=== PATIENT | male | born 1975 | race Two or more races ===

== ENCOUNTER 2023-07-11 15:36 | Inpatient (IN) | payer OTHER ==
[~2023-07-11] VITALS: Ht 185.4 cm; Wt 50.3 kg
[2023-07-11] VITALS (8 sets, daily range): BP systolic 111–142; BP diastolic 68–93; PULSE 136–162; RESP 16–29; TEMP 98.4–98.8; O2SAT 91–94
[2023-07-11] MEDS ORDERED: METOPROLOL TARTRATE 50 MG TAB PO ONE (19:30)
[2023-07-11] MEDS: dilTIAZem 125mg/125ml BAG KIT 125 ML IV SCH (19:30)
[2023-07-11] MEDS ORDERED: MORPHINE SULFATE INJ 2 MG/ml SYRG IV PRN (20:15)
[2023-07-11] MEDS ORDERED: MAALOX PLUS or MAALOX 30 ML PO PRN (20:15)
[2023-07-11] MEDS ORDERED: ONDANSETRON HCL 4 MG/2 ML VIAL IV PRN (20:15)
[2023-07-11] MEDS ORDERED: NITROGLYCERIN 0.4 MG SL TAB SL PRN (20:15)
[2023-07-11] MEDS ORDERED: LORazepam 0.5 MG TAB PO PRN (20:15)
[2023-07-11] MEDS ORDERED: ACETAMINOPHEN 325 MG TAB PO PRN (20:15)
[2023-07-11] MEDS ORDERED: HYDROmorphone HCL 2 MG/ML VL/or syr IV PRN (20:15)
[2023-07-11] MEDS ORDERED: DOCUSATE SOD 100 MG CAP PO PRN (20:15)
[2023-07-11 20:27] LABS: Basophils # (auto) 0.1 10 ^3/uL (0-0.2); Basophils % (auto) 0.6 % (0.0-2.0); Eosinophils # (auto) 0.1 10 ^3/uL (0-0.8); Eosinophils % (auto) 1.3 % (0.0-7.0); Hematocrit 36.9 % (41.0-53.0); Hemoglobin 12.7 g/dL (13.5-17.5); Lymphocytes # (auto) 3.4 10 ^3/uL (0.4-5.4); Mean Corpuscular Hemoglobin 29.7 pg (28.0-32.0); Mean Corpuscular Hgb Conc. 34.4 g/dL (32.0-36.0); Mean Corpuscular Volume 86.3 fL (80.0-100.0); Monocytes # (auto) 0.8 10 ^3/uL (0-1.3); Monocytes % (auto) 7.3 % (0.0-12.0); Neutrophils # (auto) 6.2 10 ^3/uL (1.6-8.6); Neutrophils % (auto) 58.8 % (37.0-80.0); Nucleated Red Blood Cells % 0.1 %; Red Blood Cells 4.27 10^6/uL (4.5-5.90); Red Cell Distribution Width 13.4 % (11.8-14.3); White Blood Cell 10.5 10^3/uL (4.4-10.8)
[2023-07-11 20:50] LABS: Alanine Aminotransferase 47 U/L (7-40); Albumin 4.3 g/dL (3.2-4.8); Alkaline Phosphatase 51 U/L (46-116); Anion Gap 5 (5-15); Aspartate Aminotransferase 22 U/L (13-40); BUN/Creatinine Ratio 10.5 (10.0-20.0); Bilirubin, Total 1.9 mg/dL (0.2-1.0); Blood Urea Nitrogen 14 mg/dL (9-23); Calcium 8.6 mg/dL (8.7-10.4); Carbon Dioxide 28 mmol/L (20-30); Chloride 109 mmol/L (98-107); Glucose 92 mg/dL (74-106); Sodium 142 mmol/L (136-145); Total Protein 6.1 g/dL (5.7-8.2)
[2023-07-12] VITALS (59 sets, daily range): BP systolic 93–153; BP diastolic 53–97; PULSE 99–160; RESP 13–25; TEMP 98.6–99; O2SAT 86–97
[2023-07-12] MEDS ORDERED: dilTIAZem 25 MG/5 ML VIAL IV ONE (00:37)
[2023-07-12] MEDS: APIXABAN 5 MG TAB PO SCH ×2 (00:54→10:29)
[2023-07-12] MEDS: SODIUM CHLOR 0.9% PF (SALINE LOCK) 10ML VIAL/SYR IV SCH ×4 (00:54→21:39)
[2023-07-12] MEDS: dilTIAZem 125mg/125ml BAG KIT 125 ML IV SCH ×2 (01:40→10:31)
[2023-07-12 04:19] LABS: Basophils # (auto) 0 10 ^3/uL (0-0.2); Basophils % (auto) 0.3 % (0.0-2.0); Eosinophils # (auto) 0.2 10 ^3/uL (0-0.8); Eosinophils % (auto) 1.5 % (0.0-7.0); Hemoglobin 12.2 g/dL (13.5-17.5); Lymphocytes # (auto) 2.6 10 ^3/uL (0.4-5.4); Lymphocytes % (auto) 23.1 % (10.0-50.0); Mean Corpuscular Hemoglobin 30.1 pg (28.0-32.0); Mean Corpuscular Hgb Conc. 34.8 g/dL (32.0-36.0); Mean Corpuscular Volume 86.5 fL (80.0-100.0); Monocytes % (auto) 9.3 % (0.0-12.0); Neutrophils # (auto) 7.3 10 ^3/uL (1.6-8.6); Neutrophils % (auto) 65.8 % (37.0-80.0); Nucleated Red Blood Cells % 0.1 %; Red Blood Cells 4.05 10^6/uL (4.5-5.90); Red Cell Distribution Width 13.2 % (11.8-14.3); White Blood Cell 11.1 10^3/uL (4.4-10.8)
[2023-07-12 04:26] LABS: Alanine Aminotransferase 38 U/L (7-40); Albumin 4.1 g/dL (3.2-4.8); Alkaline Phosphatase 46 U/L (46-116); Anion Gap 6 (5-15); Aspartate Aminotransferase 17 U/L (13-40); BUN/Creatinine Ratio 7.7 (10.0-20.0); Blood Urea Nitrogen 11 mg/dL (9-23); Calcium 8.7 mg/dL (8.7-10.4); Carbon Dioxide 27 mmol/L (20-30); Chloride 108 mmol/L (98-107); Glucose 104 mg/dL (74-106); Potassium 3.8 mmol/L (3.5-5.1); Sodium 141 mmol/L (136-145)
[2023-07-12 04:27] LABS: Bilirubin, Total 2.1 mg/dL (0.2-1.0); Total Protein 6.1 g/dL (5.7-8.2)
[2023-07-12] MEDS ORDERED: METOPROLOL TARTRATE 1MG/1ML-5ML VIAL IV ONE (12:30)
[2023-07-12] MEDS: CARVEDILOL 12.5 MG TAB PO SCH ×2 (13:05→21:39)
[2023-07-12] MEDS: HYDROcodone-ACET 5/325MG TAB PO PRN (14:26)
[2023-07-12] MEDS ORDERED: FUROSEMIDE 20 MG TAB PO ONE (14:30)
[2023-07-12] MEDS ORDERED: DIGOXIN (250MCG/ML) 2 ML AMPULE IV ONE ×3 (18:30→20:30)
[2023-07-12 18:57] LABS: Urine Bacteria NONE SEEN /hpf (None Seen); Urine Blood Negative /uL (Negative); Urine Clarity Clear (Clear); Urine Color Yellow (Yellow); Urine Mucus FEW (None Seen); Urine Protein, UAD Negative (Negative); Urine Specific Gravity 1.018 (1.001-1.035); Urine Urobilinogen Normal (Negative); Urine WBC <1 /hpf (0 - 3)
[2023-07-12 19:16] LABS: Amphetamine Screen, Urine Neg (NEGATIVE); Benzodiazephine Screen, Urine Neg (NEGATIVE)
[2023-07-12 19:17] LABS: Barbiturate Scree,Urine Neg (NEGATIVE); Cannabinoid Screen, Urine Neg (NEGATIVE); Cocaine Screen, Urine Neg (NEGATIVE); Opiate Scree,Urine Neg (NEGATIVE); Phencyclidine Screen, Urine Neg (NEGATIVE)
[2023-07-12] MEDS: ENOXAPARIN SOD 150 MG/1 ML SYRINGE SC SCH (21:38)
[2023-07-12] MEDS: SACUBITRIL-VALSARTAN 24mg/26mg TAB PO SCH (22:07)
[2023-07-13] VITALS (35 sets, daily range): BP systolic 93–120; BP diastolic 52–89; PULSE 131–180; RESP 11–28; TEMP 98.1–99.3; O2SAT 88–99
[2023-07-13 04:25] LABS: Basophils # (auto) 0 10 ^3/uL (0-0.2); Basophils % (auto) 0.3 % (0.0-2.0); Eosinophils # (auto) 0.2 10 ^3/uL (0-0.8); Eosinophils % (auto) 1.4 % (0.0-7.0); Hematocrit 38.2 % (41.0-53.0); Lymphocytes # (auto) 2.8 10 ^3/uL (0.4-5.4); Lymphocytes % (auto) 22.3 % (10.0-50.0); Mean Corpuscular Hemoglobin 29.4 pg (28.0-32.0); Mean Corpuscular Hgb Conc. 34.1 g/dL (32.0-36.0); Mean Corpuscular Volume 86.4 fL (80.0-100.0); Monocytes # (auto) 1.1 10 ^3/uL (0-1.3); Monocytes % (auto) 8.5 % (0.0-12.0); Neutrophils # (auto) 8.6 10 ^3/uL (1.6-8.6); Neutrophils % (auto) 67.5 % (37.0-80.0); Red Blood Cells 4.43 10^6/uL (4.5-5.90); White Blood Cell 12.7 10^3/uL (4.4-10.8)
[2023-07-13 04:38] LABS: Alanine Aminotransferase 34 U/L (7-40); Albumin 4.2 g/dL (3.2-4.8); Alkaline Phosphatase 47 U/L (46-116); Anion Gap 6 (5-15); Aspartate Aminotransferase 18 U/L (13-40); BUN/Creatinine Ratio 9.5 (10.0-20.0); Blood Urea Nitrogen 13 mg/dL (9-23); Carbon Dioxide 27 mmol/L (20-30); Chloride 106 mmol/L (98-107); Cholesterol 138 mg/dL (< 200); Glucose 115 mg/dL (74-106); HDL Cholesterol 31 mg/dL (40-59); LDL Cholesterol 93 mg/dL (< 100); Potassium 4.1 mmol/L (3.5-5.1); Sodium 139 mmol/L (136-145); Triglycerides 103 mg/dL (< 150)
[2023-07-13 04:39] LABS: Total Protein 6.2 g/dL (5.7-8.2)
[2023-07-13 04:40] LABS: INR 1.14 (0.9-1.15); Partial Thromboplastin Time 33.7 SEC (24.5-34.5); Prothrombin Time 11.9 sec (9.3-11.8)
[2023-07-13] MEDS: SODIUM CHLOR 0.9% PF (SALINE LOCK) 10ML VIAL/SYR IV SCH ×3 (06:51→22:56)
[2023-07-13] MEDS ORDERED: HEPARIN SODIUM (PORCINE) 5000 UNITS/ML 1ML VIAL ONE (07:34)
[2023-07-13] MEDS ORDERED: VERAPAMIL 2.5MG/ML INJ 2ML VIAL IV ONE (07:34)
[2023-07-13] MEDS ORDERED: SODIUM CHL 0.9% 0 ML ONE (07:34)
[2023-07-13] MEDS ORDERED: ANGIOMAX 250 MG VIAL IV ONE (07:34)
[2023-07-13] MEDS ORDERED: fentaNYL CITRATE 100 MCG/2 ML VL ONE (07:36)
[2023-07-13] MEDS ORDERED: MIDAZOLAM HCL 2MG/2ML 2ml VIAL (1mg/ml) ONE (07:36)
[2023-07-13] MEDS ORDERED: LIDOCAINE 2%HCL (LOCAL ANESTH.) INJ 20ML MDV ONE (07:37)
[2023-07-13] MEDS ORDERED: IODIXANOL 320MG/ML 100ML BTL IV ONE ×3 (07:37→07:44)
[2023-07-13] MEDS: ENOXAPARIN SOD 150 MG/1 ML SYRINGE SC SCH (10:00)
[2023-07-13] MEDS ORDERED: FUROSEMIDE 20 MG TAB PO SCH (10:00)
[2023-07-13] MEDS: SACUBITRIL-VALSARTAN 24mg/26mg TAB PO SCH ×2 (10:00→21:17)
[2023-07-13] MEDS ORDERED: SPIRONOLACTONE 25 MG TAB PO ONE (10:15)
[2023-07-13] MEDS ORDERED: APIXABAN 5 MG TAB PO ONE (10:15)
[2023-07-13] MEDS ORDERED: DIGOXIN 0.125 MG TAB PO ONE (10:15)
[2023-07-13] MEDS ORDERED: EMPAGLIFLOZIN 10 MG TAB PO ONE (10:15)
[2023-07-13] MEDS ORDERED: SODIUM CHLORIDE 0.9% 250 ML IV ONE (17:00)
[2023-07-13] MEDS: HYDROcodone-ACET 5/325MG TAB PO PRN (17:52)
[2023-07-13] MEDS ORDERED: MAGNESIUM SULFATE 1GM/100ML 100 ML IV ONE (18:15)
[2023-07-13] MEDS ORDERED: METOPROLOL TARTRATE 1MG/1ML-5ML VIAL IV PRN (18:15)
[2023-07-13] MEDS ORDERED: dilTIAZem 25 MG/5 ML VIAL IV ONE (21:00)
[2023-07-13] MEDS: APIXABAN 5 MG TAB PO SCH (21:17)
[2023-07-13] MEDS: CARVEDILOL 12.5 MG TAB PO SCH (21:18)
[2023-07-13] MEDS ORDERED: AMIODARONE 450mg/250ml AE 250 ML IV SCH (23:30)
[2023-07-14] VITALS (53 sets, daily range): BP systolic 98–143; BP diastolic 40–98; PULSE 97–173; RESP 13–36; TEMP 98.8–99.3; O2SAT 87–98
[2023-07-14] MEDS: HYDROcodone-ACET 5/325MG TAB PO PRN ×6 (02:00→22:19)
[2023-07-14] MEDS ORDERED: AMIODARONE 450mg/250ml AE 250 ML IV SCH (05:30)
[2023-07-14] MEDS: SODIUM CHLOR 0.9% PF (SALINE LOCK) 10ML VIAL/SYR IV SCH ×3 (06:23→22:19)
[2023-07-14] MEDS: EMPAGLIFLOZIN 10 MG TAB PO SCH (06:51)
[2023-07-14] MEDS: FUROSEMIDE 20 MG/2 ML VIAL IV SCH (10:00)
[2023-07-14] MEDS ORDERED: DIGOXIN 0.125 MG TAB PO SCH ×2 (10:00)
[2023-07-14] MEDS: SPIRONOLACTONE 25 MG TAB PO SCH (10:15)
[2023-07-14] MEDS: APIXABAN 5 MG TAB PO SCH ×2 (10:16→22:16)
[2023-07-14] MEDS: CARVEDILOL 12.5 MG TAB PO SCH ×2 (10:18→11:18)
[2023-07-14 11:26] LABS: Basophils # (auto) 0 10 ^3/uL (0-0.2); Basophils % (auto) 0.1 % (0.0-2.0); Eosinophils # (auto) 0 10 ^3/uL (0-0.8); Eosinophils % (auto) 0.3 % (0.0-7.0); Hematocrit 37.7 % (41.0-53.0); Hemoglobin 13.1 g/dL (13.5-17.5); Lymphocytes # (auto) 1.7 10 ^3/uL (0.4-5.4); Lymphocytes % (auto) 14.1 % (10.0-50.0); Mean Corpuscular Hgb Conc. 34.7 g/dL (32.0-36.0); Mean Corpuscular Volume 86.2 fL (80.0-100.0); Monocytes # (auto) 1.4 10 ^3/uL (0-1.3); Monocytes % (auto) 11.4 % (0.0-12.0); Neutrophils # (auto) 9.1 10 ^3/uL (1.6-8.6); Neutrophils % (auto) 74.1 % (37.0-80.0); Red Blood Cells 4.37 10^6/uL (4.5-5.90); Red Cell Distribution Width 12.8 % (11.8-14.3); White Blood Cell 12.3 10^3/uL (4.4-10.8)
[2023-07-14 11:37] LABS: Anion Gap 5 (5-15); Carbon Dioxide 30 mmol/L (20-30); Chloride 101 mmol/L (98-107); Potassium 4.1 mmol/L (3.5-5.1); Sodium 136 mmol/L (136-145)
[2023-07-14 11:38] LABS: Calcium 8.8 mg/dL (8.7-10.4)
[2023-07-14 11:43] LABS: BUN/Creatinine Ratio 10.4 (10.0-20.0); Blood Urea Nitrogen 16 mg/dL (9-23); Glucose 121 mg/dL (74-106)
[2023-07-14] MEDS ORDERED: dilTIAZem 25 MG/5 ML VIAL IV ONE ×2 (14:45→22:48)
[2023-07-14] MEDS: dilTIAZem 125mg/125ml BAG KIT 125 ML IV SCH (15:35)
[2023-07-14] MEDS ORDERED: DIGOXIN (250MCG/ML) 2 ML AMPULE IV ONE (16:30)
[2023-07-15] VITALS (92 sets, daily range): BP systolic 89–157; BP diastolic 37–103; PULSE 57–158; RESP 9–29; TEMP 98.4–99; O2SAT 85–99
[2023-07-15] MEDS: dilTIAZem 125mg/125ml BAG KIT 125 ML IV SCH ×3 (02:43→18:10)
[2023-07-15 04:27] LABS: Chloride 101 mmol/L (98-107); Potassium 4.2 mmol/L (3.5-5.1); Sodium 134 mmol/L (136-145)
[2023-07-15 04:28] LABS: Anion Gap 6 (5-15); Calcium 8.8 mg/dL (8.7-10.4); Carbon Dioxide 27 mmol/L (20-30)
[2023-07-15 04:33] LABS: BUN/Creatinine Ratio 11.3 (10.0-20.0); Blood Urea Nitrogen 17 mg/dL (9-23); Glucose 117 mg/dL (74-106)
[2023-07-15 04:36] LABS: Basophils # (auto) 0 10 ^3/uL (0-0.2); Basophils % (auto) 0.1 % (0.0-2.0); Eosinophils # (auto) 0 10 ^3/uL (0-0.8); Eosinophils % (auto) 0.4 % (0.0-7.0); Hematocrit 37.3 % (41.0-53.0); Lymphocytes # (auto) 2.7 10 ^3/uL (0.4-5.4); Lymphocytes % (auto) 20.2 % (10.0-50.0); Mean Corpuscular Hemoglobin 29.9 pg (28.0-32.0); Mean Corpuscular Volume 85.6 fL (80.0-100.0); Monocytes # (auto) 1.5 10 ^3/uL (0-1.3); Monocytes % (auto) 11.3 % (0.0-12.0); Neutrophils # (auto) 9.1 10 ^3/uL (1.6-8.6); Red Blood Cells 4.35 10^6/uL (4.5-5.90); Red Cell Distribution Width 12.7 % (11.8-14.3); White Blood Cell 13.4 10^3/uL (4.4-10.8)
[2023-07-15 04:47] LABS: CRP High Sensitivity 13.55 mg/dL (<1.0)
[2023-07-15 05:29] LABS: Erythrocyte Sedimentation Rate 41 mm/hr (0-20)
[2023-07-15] MEDS: EMPAGLIFLOZIN 10 MG TAB PO SCH (06:08)
[2023-07-15] MEDS: SODIUM CHLOR 0.9% PF (SALINE LOCK) 10ML VIAL/SYR IV SCH ×3 (06:08→21:24)
[2023-07-15] MEDS: SPIRONOLACTONE 25 MG TAB PO SCH (09:41)
[2023-07-15] MEDS: FUROSEMIDE 20 MG/2 ML VIAL IV SCH (09:41)
[2023-07-15] MEDS: APIXABAN 5 MG TAB PO SCH ×2 (09:41→21:24)
[2023-07-15] MEDS ORDERED: DIGOXIN 0.25 MG TAB PO SCH (10:00)
[2023-07-15] MEDS ORDERED: LIDOCAINE VISCOUS 2% 15ML UD MT ONE (13:15)
[2023-07-15] MEDS ORDERED: MIDAZOLAM HCL 2MG/2ML 2ml VIAL (1mg/ml) ONE (13:32)
[2023-07-15] MEDS ORDERED: fentaNYL CITRATE 100 MCG/2 ML VL ONE (13:32)
[2023-07-15] MEDS ORDERED: MIDAZOLAM HCL 5 MG/ML-1ML VIAL ONE (13:45)
[2023-07-15] MEDS: ONDANSETRON HCL 4 MG/2 ML VIAL ONE (13:45)
[2023-07-15] MEDS ORDERED: fentaNYL CITRATE 100 MCG/2 ML VL IV ONE (13:54)
[2023-07-15] MEDS ORDERED: MIDAZOLAM HCL 5 MG/ML-1ML VIAL IV ONE (13:54)
[2023-07-15] MEDS ORDERED: AMIODARONE BOLUS KIT 100 ML IV ONE (14:02)
[2023-07-15] MEDS ORDERED: ONDANSETRON HCL 4 MG/2 ML VIAL IV ONE (14:30)
[2023-07-15] MEDS ORDERED: AMIODARONE HCL 200 MG TAB PO ONE (14:30)
[2023-07-15] MEDS: INDOMETHACIN 25 MG CAP PO SCH ×2 (14:58→21:25)
[2023-07-15] MEDS ORDERED: dilTIAZem 120MG ER CAP PO ONE (15:30)
[2023-07-15] MEDS: AMIODARONE HCL 200 MG TAB PO SCH (21:25)
[2023-07-16] VITALS (72 sets, daily range): BP systolic 91–136; BP diastolic 43–82; PULSE 55–80; RESP 8–93; TEMP 97.8–98.9; O2SAT 89–99
[2023-07-16] MEDS: INDOMETHACIN 25 MG CAP PO SCH (06:04)
[2023-07-16] MEDS: SODIUM CHLOR 0.9% PF (SALINE LOCK) 10ML VIAL/SYR IV SCH ×2 (06:04→14:44)
[2023-07-16] MEDS: EMPAGLIFLOZIN 10 MG TAB PO SCH (06:05)
[2023-07-16] MEDS ORDERED: dilTIAZem 120MG ER CAP PO SCH ×2 (10:00→10:30)
[2023-07-16] MEDS: AMIODARONE HCL 200 MG TAB PO SCH ×2 (10:49→21:33)
[2023-07-16] MEDS: DIGOXIN 0.25 MG TAB PO SCH (10:51)
[2023-07-16] MEDS: SPIRONOLACTONE 25 MG TAB PO SCH (10:58)
[2023-07-16] MEDS: APIXABAN 5 MG TAB PO SCH ×2 (10:58→21:33)
[2023-07-16] MEDS: PANTOPRAZOLE 40 MG TAB PO SCH (10:58)
[2023-07-16] MEDS: FUROSEMIDE 20 MG/2 ML VIAL IV SCH (12:31)
[2023-07-16] MEDS: dilTIAZem HCL 180MG ER CAP PO SCH (14:44)
[2023-07-16 19:15] LABS: Body Fluid Red Blood Cells 2200 CUMM (0-2000); Body Fluid White Blood Cells 16525 CUMM (0-200)
[2023-07-16 19:16] LABS: Body Fluid Polymorphonuclear 92 % (0-25)
[2023-07-16] MEDS: HYDROcodone-ACET 5/325MG TAB PO PRN (20:07)
[2023-07-16] MEDS: COLCHICINE 0.6 MG CAP PO SCH (21:33)
[2023-07-17] VITALS (7 sets, daily range): BP systolic 109–136; BP diastolic 70–80; PULSE 69–78; RESP 16–18; TEMP 97.8–98.4; O2SAT 92–99
[2023-07-17 06:34] LABS: Chloride 99 mmol/L (98-107); Potassium 4.4 mmol/L (3.5-5.1); Sodium 136 mmol/L (136-145)
[2023-07-17 06:35] LABS: Anion Gap 7 (5-15); Calcium 8.8 mg/dL (8.7-10.4); Carbon Dioxide 30 mmol/L (20-30)
[2023-07-17] MEDS: EMPAGLIFLOZIN 10 MG TAB PO SCH (06:39)
[2023-07-17 06:40] LABS: Blood Urea Nitrogen 23 mg/dL (9-23); Glucose 99 mg/dL (74-106)
[2023-07-17 06:41] LABS: Magnesium 2.3 mg/dL (1.6-2.6)
[2023-07-17 07:00] LABS: Basophils # (auto) 0 10 ^3/uL (0-0.2); Basophils % (auto) 0.2 % (0.0-2.0); Eosinophils # (auto) 0.2 10 ^3/uL (0-0.8); Eosinophils % (auto) 1.6 % (0.0-7.0); Hematocrit 34.8 % (41.0-53.0); Hemoglobin 12.1 g/dL (13.5-17.5); Lymphocytes # (auto) 1.6 10 ^3/uL (0.4-5.4); Lymphocytes % (auto) 16.6 % (10.0-50.0); Mean Corpuscular Hemoglobin 29.8 pg (28.0-32.0); Mean Corpuscular Hgb Conc. 34.8 g/dL (32.0-36.0); Mean Corpuscular Volume 85.7 fL (80.0-100.0); Monocytes # (auto) 0.8 10 ^3/uL (0-1.3); Monocytes % (auto) 8.6 % (0.0-12.0); Neutrophils # (auto) 7.1 10 ^3/uL (1.6-8.6); Nucleated Red Blood Cells % 0.1 %; Red Blood Cells 4.06 10^6/uL (4.5-5.90); Red Cell Distribution Width 12.9 % (11.8-14.3); White Blood Cell 9.8 10^3/uL (4.4-10.8)
[2023-07-17 08:13] LABS: BUN/Creatinine Ratio 17.6 (10.0-20.0)
[2023-07-17] MEDS ORDERED: dilTIAZem HCL 180MG ER CAP PO SCH (10:00)
[2023-07-17] MEDS: AMIODARONE HCL 200 MG TAB PO SCH ×2 (10:15→22:28)
[2023-07-17] MEDS: APIXABAN 5 MG TAB PO SCH ×2 (10:15→22:29)
[2023-07-17] MEDS: ALLOPURINOL 300 MG TAB PO SCH (10:15)
[2023-07-17] MEDS: SPIRONOLACTONE 25 MG TAB PO SCH (10:16)
[2023-07-17] MEDS: dilTIAZem HCL 180MG ER CAP PO SCH (10:16)
[2023-07-17] MEDS: COLCHICINE 0.6 MG CAP PO SCH ×2 (10:16→22:28)
[2023-07-17] MEDS: DIGOXIN 0.25 MG TAB PO SCH (10:17)
[2023-07-17] MEDS: FUROSEMIDE 20 MG/2 ML VIAL IV SCH (10:18)
[2023-07-17] MEDS: PANTOPRAZOLE 40 MG TAB PO SCH (10:18)
[2023-07-17] MEDS ORDERED: COLC0.6T56 PO (13:57)
[2023-07-17] MEDS ORDERED: APIX5TAB PO (13:57)
[2023-07-17] MEDS ORDERED: CAR3125T OR (13:57)
[2023-07-17] MEDS ORDERED: DILT-102 PO ×2 (13:57)
[2023-07-17] MEDS ORDERED: EMPA1TAB PO (13:57)
[2023-07-17] MEDS ORDERED: SPIR25TA PO (13:57)
[2023-07-17] MEDS ORDERED: ALL300T PO (13:57)
[2023-07-17] MEDS ORDERED: AMIO200T13 PO (13:57)
[2023-07-17] MEDS ORDERED: DIGO0.25 PO ×2 (13:57)
[2023-07-17] MEDS ORDERED: CARVEDILOL 3.125 MG TAB PO ONE (14:00)
[2023-07-17] MEDS: SODIUM CHLOR 0.9% PF (SALINE LOCK) 10ML VIAL/SYR IV SCH ×2 (18:24→22:00)
[2023-07-17] MEDS: CARVEDILOL 3.125 MG TAB PO SCH (22:29)
[2023-07-18 05:00] VITALS: BP 122/73; PULSE 67; RESP 19; TEMP 98; O2SAT 93
[2023-07-18] MEDS: SODIUM CHLOR 0.9% PF (SALINE LOCK) 10ML VIAL/SYR IV SCH (06:14)
[2023-07-18] MEDS: EMPAGLIFLOZIN 10 MG TAB PO SCH (06:18)
[2023-07-18 08:00] VITALS: PULSE 61
[2023-07-18 09:26] VITALS: BP 127/60; PULSE 66; RESP 16; TEMP 98; O2SAT 98
[2023-07-18] MEDS: COLCHICINE 0.6 MG CAP PO SCH (09:40)
[2023-07-18] MEDS: FUROSEMIDE 20 MG/2 ML VIAL IV SCH (09:40)
[2023-07-18] MEDS: AMIODARONE HCL 200 MG TAB PO SCH (09:41)
[2023-07-18] MEDS: APIXABAN 5 MG TAB PO SCH (09:41)
[2023-07-18] MEDS: ALLOPURINOL 300 MG TAB PO SCH (09:41)
[2023-07-18] MEDS: CARVEDILOL 3.125 MG TAB PO SCH (09:42)
[2023-07-18] MEDS: dilTIAZem HCL 180MG ER CAP PO SCH (09:42)
[2023-07-18] MEDS: SPIRONOLACTONE 25 MG TAB PO SCH (09:43)
[2023-07-18] MEDS: DIGOXIN 0.25 MG TAB PO SCH (09:44)
[2023-07-18] MEDS: PANTOPRAZOLE 40 MG TAB PO SCH (09:44)
[2023-07-18 14:57] VITALS: BP 135/76; PULSE 65; RESP 16; TEMP 98.3; O2SAT 97
== END 2023-07-18 14:30 | disposition home or self-care (01) | DRG 286 ==
LOC: TELE-CENTR 18:35 → UNDOADMIN 18:35 → TELE-CENTR 20:15 → ICU WEST 23:15 → TELE-CENTR 07-16 15:00
PROVIDERS: ADMIT Internal Medicine; ATTEND Internal Medicine
PROC: 4A023N7 Measurement of Cardiac Sampling and Pressure, Left Heart, Percutaneous Approach (ICD-10-PCS; principal; 2023-07-13)
PROC: B211YZZ Fluoroscopy of Multiple Coronary Arteries using Other Contrast (ICD-10-PCS; 2023-07-13)
PROC: B246ZZ4 Ultrasonography of Right and Left Heart, Transesophageal (ICD-10-PCS; 2023-07-15)
PROC: 05HA33Z Insertion of Infusion Device into Left Brachial Vein, Percutaneous Approach (ICD-10-PCS; 2023-07-15)
PROC: B54NZZA Ultrasonography of Left Upper Extremity Veins, Guidance (ICD-10-PCS; 2023-07-15)
PROC: 0S9D3ZZ Drainage of Left Knee Joint, Percutaneous Approach (ICD-10-PCS; 2023-07-16)
DX: I48.20 Chronic atrial fibrillation, unspecified (principal); I50.21 Acute systolic (congestive) heart failure; D68.69 Other thrombophilia; N17.9 Acute kidney failure, unspecified; Z68.1 Body mass index [BMI] 19.9 or less, adult; I42.8 Other cardiomyopathies; E66.01 Morbid (severe) obesity due to excess calories; M25.462 Effusion, left knee; G47.33 Obstructive sleep apnea (adult) (pediatric); Z79.01 Long term (current) use of anticoagulants; Z82.49 Family history of ischemic heart disease and other diseases of the circulatory system; Z91.199 Patient's noncompliance with other medical treatment and regimen due to unspecified reason
CPT/HCPCS: 36415; 71045; 73700; 73721; 76942; 80048; 80053; 80061; 80162; 80307; 81001; 83036; 83735; 83880; 83986; 84443; 84550; 85025; 85610; 85652; 85730; 86141; 87081; 87205; 89051; 89060; 93005; 93306; 93312; 93458; 93926; 93971; 99152; G0378; J2250; J2405; Q9967